=== PATIENT | male | born 1960 | race Caucasian/White ===

== ENCOUNTER → 2020-10-18 | Outpatient (CLI) | payer BC ==
--- NOTE | 2020-10-18 12:16 | RAD ---
INDICATION: Reason: RASH ON LLE, PERIPHERAL EDEMA / Spl. Instructions: / History: COMPARISON: None. TECHNIQUE: Grayscale, color and doppler ultrasound images were obtained of the bilateral lower extrem ity venous vasculature. RIGHT: No thrombus identified in the common femoral vein, femoral vein, popliteal vein or visualized calf ve ins. LEFT: No thrombus identified in the common femoral vein, femoral vein, popliteal vein or visualized calf ve ins. IMPRESSION: * No thrombus identified in deep venous system of bilateral lower extremities. Electronically signed by: Miguel Awad MD (10/18/2020 12:13 PM) [id number]
== END ==
LOC: US 11:05
PROVIDERS: ATTEND Physician Assistant Medical
DX: R60.0 Localized edema (principal); R21 Rash and other nonspecific skin eruption
CPT/HCPCS: 93970

== ENCOUNTER 2021-08-21 17:48 | Inpatient (IN) | payer BC ==
[~2021-08-21] VITALS: Ht 193 cm; Wt 79.4 kg
--- NOTE | 2021-08-21 19:07 | PHYS DOC ---
Past History Past Surgical History: No Surgical History Smoking: Cigarettes General Adult EDM: Chief Complaint: SHORTNESS OF BREATH HPI: HPI: ".. I ve been sick about a week now.. getting so weak .. I have to use a cane to walk.... Weak, short of breath, fevers urgent care said I had a pneumonia.... I ve been taking my steroids.. and antibiotics.. " Patient is a 60 year old male who presents with above hx and complaints of fever, cough, and hypoxia. Pt. seen earlier in Urgent care and given a dosage of Azithromax and started on Amoxicillin by Rx. Pt pneumonia diagnosed by chest xray at . Pt. has a 44 pack years. Normally follows with Aayush. Noted pt., desaturations into 80's with any activiity. Complaints of marked weakness and fatigue. No history of immunosuppression. No history of recent travel. No specific ill contacts. Patient did get COVID vaccination x3. Did not get flu vaccination this season. Review of Systems: Review of Systems: Constitutional: Subjective complaints of fever or chills Eyes: Denies change in visual acuity HENT: Denies nasal congestion or sore throat Respiratory: Complains of of cough and shortness of breath Cardiovascular: Denies chest pain or edema GI: Denies abdominal pain, nausea, vomiting, bloody stools or diarrhea : Denies dysuria Musculoskeletal: Complains of generalized muscle weakness and fatigue Integument: Denies rash Neurologic: Denies headache, focal weakness or sensory changes Endocrine: Denies polyuria or polydipsia Lymphatic: Denies swollen glands Psychiatric: Denies depression or anxiety Family History: Family History: Noncontributory to presentation Current Medications: Current Meds: See nursing for home meds Allergies: Allergies: Allergies Coded Allergies Type Severity Reaction Last Updated Verified No Known Drug Allergies 08/21/21 No Physical Exam: PE: Constitutional: Moderate acute distress, non-toxic appearance. [] HENT: Normocephalic, atraumatic, bilateral external ears normal, oropharynx moist, no oral exudates, nose normal. [] Eyes: PERRLA, EOMI, conjunctiva normal, no discharge. [] Neck: Normal range of motion, no tenderness, supple, no stridor. [] Cardiovascular:Heart rate regular rhythm, no murmur [] Lungs & Thorax: Bilateral breath sounds equal apex with scattered wheezes throughout on auscultation [] Abdomen: Bowel sounds normal, soft, no tenderness, no masses, no pulsatile masses. [] Skin: Warm, dry, no erythema, no rash. [] Back: No tenderness, no CVA tenderness. [] Extremities: No tenderness, no cyanosis, no clubbing, ROM intact, no edema. No cording appreciated. Complains of generalized weakness using a cane to walk Neurologic: Alert and oriented X 3, normal motor function, normal sensory function, no focal deficits noted. [] Psychologic: Affect anxious, judgement normal, mood normal. [] Current Patient Data: Vital Signs: Vital Signs Date Time Temp Pulse Resp B/P (MAP) Pulse Ox O2 Delivery O2 Flow Rate FiO2 08/21/21 18:01 98.7 78 18 153/90 (111) 90 Room Air EKG: EKG: My interpretation EKG shows a sinus rhythm at 64 bpm. No acute morphology. No findings of acute STEMI with contralateral changes. [] Radiology/Procedures: Radiology/Procedures: [place] [id number] IMAGING REPORT Signed PATIENT: Chun ROME ACCOUNT: [id number] : 1960 LOCATION: ER AGE: 60 SEX: M EXAM STATUS: REG ER ORD. PHYSICIAN: MAYE GAR MD REASON: OMNI 350, 100ML IV. Hypoxia PROCEDURE: CT ANGIOGRAPHY CHEST EXAMINATION: CTA CHEST CLINICAL HISTORY: Hypoxia. Technique: Spiral CT acquisition of the chest from the thoracic inlet to the upper abdomen following IV contrast with coronal and sagittal reformatted images also provided for review. 3D maximum intensity projection images also performed. CT Dose Reduction Employed: One or more of the following individualized dose reduction techniques were utilized for this examination: 1. Automated exposure control 2. Adjustment of the mA and/or kV according to patient size 3. Use of iterative reconstruction technique. COMPARISON: Chest radiograph same day FINDINGS: Pulmonary Vasculature: No evidence of main, lobar, or segmental pulmonary arterial thrombus. Lung Parenchyma, Pleura, and Airways: No focal consolidation. Scattered soler bsegmental atelectasis and/or scarring bilaterally. Moderate emphysema predominantly in the upper lobes. Two 5 mm solid pulmonary nodules in the posterior right lower lobe (series 5 image 84). 7 mm solid pulmonary nodule posterior right lower lobe (series 5 image 97). No pleural effusion. Central airways patent. Lower Neck, Lymph Nodes, and Mediastinum: Visualized thyroid gland within normal limits. No mediastinal, hilar, or axillary lymphadenopathy. Heart, Pericardium, and Thoracic Vessels: Cardiac chambers normal in size. No pericardial effusion. Thoracic aorta within normal limits. No coronary artery atherosclerotic calcifications are noted, although the study is not optimized for coronary assessment. Bones and Soft Tissues: Multilevel degenerative changes in thoracic spine. Upper Abdomen: Partially visualized upper abdomen unremarkable. IMPRESSION: No evidence of main, lobar, or segmental pulmonary embolism. Several pulmonary nodules in the right lower lobe measuring up to 7 mm. Recommend follow-up CT chest without intravenous contrast in 6-12 months to evaluate stability. Emphysema. Electronically signed by: Jayant Lopez DO (08/21/2021 9:22 PM) [facility] DICTATED AND SIGNED BY: JAYANT LOPEZ DO DATE: 08/21/212111 [][place] [address] IMAGING REPORT Signed PATIENT: Chun ROME ACCOUNT: [id number] : 1960 LOCATION: US AGE: 60 SEX: M EXAM STATUS: REG CLI ORD. PHYSICIAN: MAGDALENO SOTO REASON: RASH ON LLE, PERIPHERAL EDEMA PROCEDURE: VENOUS LOWER EXT BILATERAL INDICATION: Reason: RASH ON LLE, PERIPHERAL EDEMA / Spl. Instructions: / History: COMPARISON: None. TECHNIQUE: Grayscale, color and doppler ultrasound images were obtained of the bilateral lower extremity venous vasculature. RIGHT: No thrombus identified in the common femoral vein, femoral vein, popliteal vein or visualized calf veins. LEFT: No thrombus identified in the common femoral vein, femoral vein, popliteal vein or visualized calf veins. IMPRESSION: * No thrombus identified in deep venous system of bilateral lower extremities. Electronically signed by: Dasha Awad MD (10/18/2020 12:13 PM) [id number] DICTATED AND SIGNED BY: DASHA AWAD MD DATE: 10/18/20 1211 CC: MAGDALENO SOTO ~MTH0 0 Heart Score: C/O Chest Pain: N/A Risk Factors: Risk Factors: DM, Current or recent (<one month) smoker, HTN, HLP, family history of CAD, obesity. Risk Scores: Score 0 - 3: 2.5% MACE over next 6 weeks - Discharge Home Score 4 - 6: 20.3% MACE over next 6 weeks - Admit for Clinical Observation Score 7 - 10: 72.7% MACE over next 6 weeks - Early Invasive Strategies Course & Med Decision Making: Course & Med Decision Making Pertinent Labs and Imaging studies reviewed. (See chart for details) Discussed presentation, testing and tx. plan with Dr. Fontenot, Admit to his service Tele. Solumedrol 60 three times a day. Impression: 1. Respiratory Failure- Hypoxia 2. Emphysema/ COPD exacerbation 3. 44 Pack Year Smoking Hx. 4. Mild Leukocytosis 11.3 5. Pulmonary nodules 6. Weakness [] Dragon Disclaimer: Dragon Disclaimer: This electronic medical record was generated, in whole or in part, using a voice recognition dictation system. Departure Departure: Referrals: MAGDALENO SOTO (PCP) Draglonnie Disclaimer This chart was dictated in whole or in part using Voice Recognition software in a busy, high-work load, and often noisy Emergency Department environment. It may contain unintended and wholly unrecognized errors or omissions. Dragon Disclaimer This chart was dictated in whole or in part using Voice Recognition software in a busy, high-work load, and often noisy Emergency Department environment. It may contain unintended and wholly unrecognized errors or omissions. Dragon Disclaimer This chart was dictated in whole or in part using Voice Recognition software in a busy, high-work load, and often noisy Emergency Department environment. It may contain unintended and wholly unrecognized errors or omissions. MAYE GAR MD August 21, 2021 19:07
[2021-08-21] MEDS ORDERED: IV RINGERS SOLUTION,LACTATED 1,000 ML IV SCH (19:15)
[2021-08-21] MEDS ORDERED: ALBUTEROL SULFATE 8GM INHALER. INH ONE (19:15)
[2021-08-21 19:21] LABS: BASO # 0.1 x10^3/uL (0.0-0.2); BASO % 1 % (0-3); EOS # 0.1 x10^3/uL (0.0-0.7); EOS % 1 % (0-3); HEMATOCRIT 48.3 % (39.0-53.0); HEMOGLOBIN 16.2 g/dL (13.0-17.5); LYMPH # 2.3 x10^3/uL (1.0-4.8); LYMPH % 20 % (24-48); MEAN CORPUSCULAR HEMOGLOBIN 30 pg (25-35); MEAN CORPUSCULAR HGB CONC 34 g/dL (31-37); MEAN CORPUSCULAR VOLUME 89 fL (79-100); MONO # 0.8 x10^3/uL (0.0-1.1); MONO % 7 % (0-9); NEUT # 8.1 x10^3uL (1.8-7.7); NEUT % 71 % (31-73); PLATELET COUNT 239 x10^3/uL (140-400); RED BLOOD COUNT 5.42 x10^6/uL (4.30-5.70); RED CELL DISTRIBUTION WIDTH 13.6 % (11.5-14.5); WHITE BLOOD COUNT 11.3 x10^3/uL (4.0-11.0)
[2021-08-21] MEDS ORDERED: IV NORMAL SALINE 50ML 50 ML ONE (19:23)
[2021-08-21] MEDS ORDERED: cefTRIAXone SODIUM 1 GM VIAL ONE (19:23)
[2021-08-21 19:31] LABS: BACTERIA,URINE 0 /HPF (0-FEW); CLARITY,URINE CLEAR; COLOR,URINE YELLOW; GLUCOSE,URINE NEG (NEG); NITRITE,URINE NEG (NEG); RBC,URINE RARE /HPF (0-2); WBC,URINE RARE /HPF (0-4)
[2021-08-21 19:34] LABS: CALCIUM 8.9 mg/dL (8.5-10.1); GFR 76.2; POTASSIUM 4.3 mmol/L (3.5-5.1)
[2021-08-21 19:36] LABS: AMPHETAMINE/METHAMPHETAMINE NEG (NEG); BARBITURATES NEG (NEG); BENZODIAZEPINES NEG (NEG); CANNABINOIDS NEG (NEG); COCAINE NEG (NEG); METHADONE NEG (NEG); OPIATES NEG (NEG); PHENCYCLIDINE NEG (NEG)
[2021-08-21 19:44] LABS: BGAS PH 7.51 (7.35-7.46)
[2021-08-21 19:48] LABS: ALBUMIN 3.8 g/dL (3.4-5.0); DIRECT BILIRUBIN 0.2 mg/dL (0.0-0.2); TOTAL BILIRUBIN 0.9 mg/dL (0.2-1.0); TOTAL PROTEIN 7.2 g/dL (6.4-8.2)
[2021-08-21 19:49] LABS: INFLUENZA A PATIENT NEGATIVE (NEGATIVE); INFLUENZA B PATIENT NEGATIVE (NEGATIVE)
[2021-08-21] MEDS ORDERED: IOHEXOL 350 MG/ML 100 ML VIAL. IV ONE (20:00)
--- NOTE | 2021-08-21 21:25 | RAD ---
EXAMINATION: CTA CHEST CLINICAL HISTORY: Hypoxia. Technique: Spiral CT acquisition of the chest from the thoracic inlet to the upper abdomen following IV contrast with coronal and sagittal reformatted images also provided for review. 3D maximum intensi ty projection images also performed. CT Dose Reduction Employed: One or more of the following individualized dose reduction techniques wer e utilized for this examination: 1. Automated exposure control 2. Adjustment of the mA and/or kV ac cording to patient size 3. Use of iterative reconstruction technique. COMPARISON: Chest radiograph same day FINDINGS: Pulmonary Vasculature: No evidence of main, lobar, or segmental pulmonary arterial thrombus. Lung Parenchyma, Pleura, and Airways: No focal consolidation. Scattered subsegmental atelectasis and/ or scarring bilaterally. Moderate emphysema predominantly in the upper lobes. Two 5 mm solid pulmonar y nodules in the posterior right lower lobe (series 5 image 84). 7 mm solid pulmonary nodule posterio r right lower lobe (series 5 image 97). No pleural effusion. Central airways patent. Lower Neck, Lymph Nodes, and Mediastinum: Visualized thyroid gland within normal limits. No mediastin al, hilar, or axillary lymphadenopathy. Heart, Pericardium, and Thoracic Vessels: Cardiac chambers normal in size. No pericardial effusion. T horacic aorta within normal limits. No coronary artery atherosclerotic calcifications are noted, alth ough the study is not optimized for coronary assessment. Bones and Soft Tissues: Multilevel degenerative changes in thoracic spine. Upper Abdomen: Partially visualized upper abdomen unremarkable. IMPRESSION: No evidence of main, lobar, or segmental pulmonary embolism. Several pulmonary nodules in the right lower lobe measuring up to 7 mm. Recommend follow-up CT chest without intravenous contrast in 6-12 months to evaluate stability. Emphysema. Electronically signed by: Jayant Lo DO (08/21/2021 9:22 PM) [facility]
[2021-08-21] MEDS ORDERED: ACETAMINOPHEN 325 MG TABLET PO PRN (21:45)
[2021-08-21] MEDS ORDERED: methylPREDNISolone SOD SUCC PF 125 MG/2 ML VIAL. IV ONE (21:45)
[2021-08-21] MEDS ORDERED: ONDANSETRON PF 4 MG/2 ML VIAL. IVP PRN (21:45)
[2021-08-21 22:57] VITALS: BP 151/75
[2021-08-22 04:22] VITALS: BP 118/61
[2021-08-22] MEDS: IPRATRPIUM/ALBUTEROL 0.5/2.5MG 3 ML NEBU. NEB SCH ×4 (04:45→20:29)
[2021-08-22 06:11] LABS: CALCIUM 8.4 mg/dL (8.5-10.1); CREATININE 1.1 mg/dL (0.7-1.3); GFR 68.3
[2021-08-22 06:23] LABS: BASO % 0 % (0-3); EOS % 0 % (0-3); HEMATOCRIT 44.4 % (39.0-53.0); LYMPH # 0.8 x10^3/uL (1.0-4.8); LYMPH % 10 % (24-48); MEAN CORPUSCULAR HEMOGLOBIN 30 pg (25-35); MEAN CORPUSCULAR HGB CONC 34 g/dL (31-37); MEAN CORPUSCULAR VOLUME 89 fL (79-100); MONO # 0.1 x10^3/uL (0.0-1.1); MONO % 1 % (0-9); NEUT # 7.5 x10^3uL (1.8-7.7); NEUT % 89 % (31-73); PLATELET COUNT 212 x10^3/uL (140-400); RED BLOOD COUNT 4.98 x10^6/uL (4.30-5.70); RED CELL DISTRIBUTION WIDTH 13.4 % (11.5-14.5); WHITE BLOOD COUNT 8.3 x10^3/uL (4.0-11.0)
[2021-08-22 07:00] VITALS: BP 124/68
[2021-08-22] MEDS ORDERED: methylPREDNISolone SOD SUCC PF 125 MG/2 ML VIAL. IV ONE (09:00)
[2021-08-22] MEDS ORDERED: AZITHROMYCIN 250 MG TABLET. PO ONE (09:00)
--- NOTE | 2021-08-22 09:19 | HP ---
DATE OF SERVICE: 08/22/2021 ADMIT DATE: 08/21/2021 ATTENDING PHYSICIAN: Dr. Fontenot. CHIEF COMPLAINT: Shortness of breath. HISTORY OF PRESENT ILLNESS: The patient is a 60-year-old gentleman, heavy smoker, admitted through the ED with a 1-week history of profound weakness, shortness of breath, dyspnea with minimal exertion. He supposedly was diagnosed with pneumonia. He was sent home with antibiotics and steroids. The followup CT scan showed no acute infiltrate, but he does have significant emphysema. He is admitted then with an exacerbation of COPD and acute on chronic respiratory failure. He was given Solu-Medrol and supplemental oxygen. Antibiotics were continued. PAST MEDICAL HISTORY: Significant for COPD. He works as a dispatcher maintenance. He has smoked for more than 40 years. He used to drink heavily. He has stopped this since then. No history of DUI seizures. ALLERGIES: He has no known drug allergies. CURRENT MEDICATIONS: None. FAMILY HISTORY: Mom is alive at age 78. Father is alive at age 79. He is and works as a dispatcher maintenance for the [employer]. REVIEW OF SYSTEMS: Significant for dyspnea on minimal exertion. A dry nonproductive cough. No COVID exposure. He smokes heavily. All other systems reviewed and turned to be negative. PHYSICAL EXAMINATION: GENERAL: When I saw him, this is a pleasant gentleman. INITIAL VITAL SIGNS: Showed a blood pressure 118/61, pulse is 60 and regular. He was afebrile, oxygen saturation 93% on 2 liters by nasal cannula. HEENT: Head is without trauma. Pupils are reactive. Sclerae nonicteric. Oropharynx is clear. NECK: Supple. LUNGS: Diffuse wheezing bilaterally. CARDIOVASCULAR: Showed regular heart tones. No gallop. ABDOMEN: Soft. EXTREMITIES: Show no cyanosis or edema. NEUROLOGIC: Focally intact. Speech is fluent. PERTINENT LABORATORY STUDIES: Hemoglobin is 15.0 g/dL with a white count of 8300. His chemistry panel was unremarkable. Creatinine is 1.1 mg/dL. Nonfasting blood sugar 130. Cardiac troponins were negative. CT of the chest as noted, emphysematous changes. ASSESSMENT: 1. A 60-year-old gentleman with acute on chronic respiratory failure. 2. Exacerbation of chronic obstructive pulmonary disease. 3. Continued tobacco use. PLAN: 1. Admitted to the inpatient observation status. 2. Steroids. 3. Empiric antibiotics. 4. Nebulizer therapy. JULIO/BALA DR: Hari TID: [id number] CC: MICHELE ROLDAN
[2021-08-22 11:00] VITALS: BP 117/62
[2021-08-22] MEDS: AZITHROMYCIN 250 MG TABLET. PO SCH (13:15)
[2021-08-22] MEDS ORDERED: ZOLPIDEM 5 MG TABLET. PO PRN (13:15)
--- NOTE | 2021-08-22 13:18 | DS ---
DATE OF DISCHARGE: 08/22/2021 FINAL DISCHARGE DIAGNOSES: 1. Acute on chronic respiratory failure. 2. Exacerbation of chronic obstructive pulmonary disease. 3. Continue tobacco addiction. HISTORY AND PHYSICAL: The patient is a 60-year-old gentleman, heavy smoker, admitted with increasing shortness of breath and weakness. CT of the chest showed no acute infiltrate, but significant emphysematous changes. He was started on steroids and empiric antibiotics. There is a mild bronchitis component. PHYSICAL EXAMINATION: Please see the dictated note. PERTINENT LABORATORY AND X-RAY STUDIES: CT of the chest showed chronic emphysematous changes, no acute infiltrates identified. CBC and chemistry panel unremarkable. Cardiac enzymes were negative for coronary ischemia. Coronavirus was nonreactive. COURSE IN THE HOSPITAL: He was started on empiric antibiotics, steroids and nebulizer therapy. He did well. By the next day, his oxygen saturations were adequate on room air. He was ready for discharge. Strong encouragement to avoid further tobacco use, whether or not he will quit smoking remains to be seen. I recommended prednisone 60 mg p.o. daily for 7 more days and stop. Albuterol metered dose inhaler 2 puffs q.i.d. with spacer, cephalexin 500 mg p.o. t.i.d. for 7 days and stop and work release through 08/27/2021. He will follow up with Melva Looney in 1 week. The patient was then discharged from our hospital in stable condition with explicit drug and followup care. GEORGINA DR: Hari TID: [id number] CC: MICHELE ROLDAN
[2021-08-22 15:00] VITALS: BP 119/58
[2021-08-22] MEDS: ENOXAPARIN 40 MG/0.4 ML SYRINGE. SQ SCH (15:14)
--- NOTE | 2021-08-22 16:02 | RAD ---
CT HEAD/BRAIN WO History: Reason: right side weakness / Spl. Instructions: / History: Comparison: None. Technique: Noncontrast CT imaging was performed of the head. Exposure: One or more of the following individualized dose reduction techniques were utilized for thi s examination: 1. Automated exposure control 2. Adjustment of the mA and/or kV according to patient size 3. Use of iterative reconstruction technique. Findings: No intracranial hemorrhage. No mass effect. No hydrocephalus. Extra-axial spaces are unremarkable. Imaged orbits are unremarkable. Partial opacification of right ethmoid air cells. Mastoid air cells a re clear. No acute calvarial fracture. Impression: 1. No acute intracranial abnormality. Electronically signed by: Joseph Gates DO (08/22/2021 4:00 PM) [id number]
--- NOTE | 2021-08-22 16:06 | RAD ---
US DPLX CAROTID BILAT History: Reason: right weakness / Spl. Instructions: / History: COMPARISON: None Technique: Duplex sonography of the cervical portion of both carotid arteries was performed. Real-reyes e grayscale, color flow Doppler, and Doppler spectral waveform analysis is performed. PQRS Compliance Statement - Stenosis calculations for CT, MR and conventional angiography are based u rajwinder measurement of the distal ICA diameter in accordance with the NASCET methodology. Stenosis calcu lations for carotid ultrasound studies are derived from validated velocity criteria which are known t o correlate with the NASCET methodology. Findings: Right side: Peak systolic flow velocity of the CCA is 110 cm/sec. Peak systolic flow velocity of the ICA is 114 cm/sec. The ICA/CCA ratio is 1.0. Peak end diastolic flow velocity of the ICA is 18 cm/sec. The peak systolic velocity of the ECA is 140 cm/sec. No significant plaque formation is identified. Left side: Peak systolic flow velocity of the CCA is 91 cm/sec. Peak systolic flow velocity of the ICA is 67 cm/sec. The ICA/CCA ratio is 0.7. Peak end diastolic flow velocity of the ICA is 14 cm/sec. Peak systolic flow velocity of the ECA is 148 cm/sec. No significant plaque formation is identified. Vertebral arteries: Bilateral vertebral arteries demonstrate antegrade flow. IMPRESSION: 1. No hemodynamically significant internal carotid artery stenosis. Electronically signed by: Joseph Gates DO (08/22/2021 4:03 PM) [id number]
--- NOTE | 2021-08-22 17:02 | CARD ---
MR#: [id number] Date of Study: 08/22/2021 Ordering Physician: DENICE DIAZ, Referring Physician: DENICE DIAZ, Tech: Trevor Wynn [facility] APPROVED REPORT EXAM: Two-dimensional and M-mode echocardiogram with Doppler and color Doppler. Other Information Quality : GoodHR: 64bpm Rhythm : NSR INDICATION Dyspnea RISK FACTORS Smoking COPD 2D DIMENSIONS Left Atrium(2D)2.9 (1.6-4.0cm)IVSd1.0 (0.7-1.1cm) Aortic Root(2D)4.0 (2.0-3.7cm)LVDd4.7 (3.9-5.9cm) LVOT Diameter1.9 (1.8-2.4cm)PWd1.0 (0.7-1.1cm) LA Emsari06 (18-58mL)LVDs1.7 (2.5-4.0cm) FS (%) 65.0 %SV96.8 ml Aortic Valve AoV Peak Michael.177.5cm/sAoV VTI32.4cm AO Peak GR.12.6mmHgLVOT Peak Michael.133.3cm/s LVOT VTI 28.96cmAO Mean GR.6mmHg CALOS (VMAX)2.73ik5MUS (VTI)2.59cm2 Mitral Valve MV E Ckuysazy28.8cm/sMV DECEL UBYC255he MV A Knnpmzbh36.6cm/sE/A Ratio1.1 Pulmonary Valve PV Peak Spjcvxpb649.7cm/sPV Peak Grad.6mmHg Tricuspid Valve TR P. Uihcgcjk824sc/sTR Peak Gr.34mmHg Pulmonary Vein S1 Jxsrfkhx55.0cm/sD2 Nwtatjab40.1cm/s LEFT VENTRICLE The left ventricle is normal size. There is normal left ventricular wall thickness. The left ventricu lar systolic function is normal. LV ejection fraction is 55 to 60%. There is normal LV segmental wall motion. The left ventricular diastolic function and filling is normal for age. No left ventricle thr ombus noted on this study. There is no ventricular septal defect visualized. There is no left ventric ular aneurysm. There is no mass noted in the left ventricle. RIGHT VENTRICLE The right ventricle is normal size. There is normal right ventricular wall thickness. The right ventr icular systolic function is normal. ATRIA The left atrium size is normal. The right atrium is mildly dilated. The interatrial septum is intact with no evidence for an atrial septal defect or patent foramen ovale as noted on 2-D or Doppler imagi ng. AORTIC VALVE The aortic valve is normal in structure and function. Doppler and Color Flow revealed no significant aortic regurgitation. There is no significant aortic valvular stenosis. There is no aortic valvular v egetation. MITRAL VALVE The mitral valve is normal in structure and function. There is no evidence of mitral valve prolapse. There is no mitral valve stenosis. Doppler and Color-flow revealed trace mitral regurgitation. TRICUSPID VALVE The tricuspid valve is normal in structure and function. Doppler and Color Flow revealed mild tricusp id regurgitation. The PA pressure was estimated at 36 mmHg. There is no tricuspid valve prolapse or v egetation. There is no tricuspid valve stenosis. PULMONIC VALVE The pulmonary valve is normal in structure and function. Doppler and Color Flow revealed no pulmonic valvular regurgitation. There is no pulmonic valvular stenosis. GREAT VESSELS The aortic root is dilated at (4.0cm) The ascending aorta is normal in size. The pulmonary artery is normal. The IVC is normal in size and collapses >50% with inspiration. PERICARDIAL EFFUSION There is no pleural effusion. There is no evidence of significant pericardial effusion. Critical Notification Critical Value: No <Conclusion> The left ventricle is normal size. The left ventricular systolic function is normal. LV ejection fraction is 55 to 60%. Doppler and Color Flow revealed no significant aortic regurgitation. There is no significant aortic valvular stenosis. Doppler and Color-flow revealed trace mitral regurgitation. Doppler and Color Flow revealed mild tricuspid regurgitation. The PA pressure was estimated at 36 mmHg. The aortic root is dilated at (4.0cm) Signed by : Nikhil Dobbins MD Electronically Approved : 08/22/2021 17:01:37
[2021-08-22 17:42] LABS: CHOLESTEROL/HDL RATIO 4.3
[2021-08-22 19:00] VITALS: BP 118/52
[2021-08-22] MEDS: TAMSULOSIN 0.4 MG CAP.ER.24H. PO SCH (21:05)
--- NOTE | 2021-08-23 00:04 | PN ---
ADDENDUM I had discharged the patient. He was ready to go home, but it turned out he wants to change doctor. He disagree with my opinion. Dr. Wilson was called and he was gracious enough to accept the patient in transfer. Therefore, the patient will be transferred to Dr. Wilson. I have already dictated the discharge summary. ROWAN DR: Hari TID: [id number] CC: MICHELE ROLDAN
[2021-08-23 04:05] VITALS: BP 108/63
[2021-08-23 05:51] LABS: BASO # 0.1 x10^3/uL (0.0-0.2); BASO % 1 % (0-3); EOS % 0 % (0-3); HEMOGLOBIN 13.6 g/dL (13.0-17.5); LYMPH # 2.7 x10^3/uL (1.0-4.8); LYMPH % 16 % (24-48); MEAN CORPUSCULAR HEMOGLOBIN 30 pg (25-35); MEAN CORPUSCULAR HGB CONC 33 g/dL (31-37); MEAN CORPUSCULAR VOLUME 90 fL (79-100); MONO # 1.2 x10^3/uL (0.0-1.1); MONO % 7 % (0-9); NEUT # 12.6 x10^3uL (1.8-7.7); NEUT % 76 % (31-73); PLATELET COUNT 188 x10^3/uL (140-400); RED BLOOD COUNT 4.56 x10^6/uL (4.30-5.70); RED CELL DISTRIBUTION WIDTH 13.7 % (11.5-14.5); WHITE BLOOD COUNT 16.7 x10^3/uL (4.0-11.0)
[2021-08-23 06:09] LABS: ALBUMIN 2.8 g/dL (3.4-5.0); CALCIUM 8.1 mg/dL (8.5-10.1); GFR 76.2; POTASSIUM 3.2 mmol/L (3.5-5.1); TOTAL BILIRUBIN 0.5 mg/dL (0.2-1.0); TOTAL PROTEIN 5.7 g/dL (6.4-8.2)
[2021-08-23 06:10] LABS: % BANDS 3 % (0-9); % LYMPHS 11 % (24-48); % MONOS 7 % (0-10); % SEGS 79 % (35-66); PLT ESTIMATE ADEQUATE (ADEQUATE)
[2021-08-23 07:00] VITALS: BP 107/62
[2021-08-23] MEDS: ASPIRIN ENTERIC COATED 81 MG TABLET.DR. PO SCH (09:07)
[2021-08-23] MEDS: AZITHROMYCIN 250 MG TABLET. PO SCH (09:07)
[2021-08-23 11:20] VITALS: BP 124/68
[2021-08-23] MEDS: methylPREDNISolone SOD SUCC PF 40 MG/ML VIAL. IV SCH ×2 (15:04→20:52)
[2021-08-23] MEDS: ENOXAPARIN 40 MG/0.4 ML SYRINGE. SQ SCH (15:05)
[2021-08-23 17:01] VITALS: BP 126/70
[2021-08-23] MEDS: TAMSULOSIN 0.4 MG CAP.ER.24H. PO SCH (20:52)
--- NOTE | 2021-08-23 21:48 | CONS ---
NEUROLOGY CONSULTATION REFERRING PHYSICIAN: Dr. Manoj Fontenot. REASON FOR CONSULTATION: Generalized weakness. HISTORY OF PRESENT ILLNESS: This is a 60-year-old right-handed male, has had 1 week history of progressive weakness of the lower extremities, shortness of breath and cough. The patient was first seen in urgent care in [place]. He was diagnosed with pneumonia and discharged home with antibiotics and prednisone. The patient appeared to have progressive weakness of the lower extremities to the point that he sustained 2 falls. The patient stated his knee buckled on him and he is unable to stand and walk. He was evaluated in the Emergency Room today and was found to have possible exacerbation of COPD due to longstanding history of smoking. The patient stated he was never diagnosed with COPD in the past. He was found to have acute respiratory failure with oxygen saturation of 80. Therefore, the patient was admitted for further evaluation and treat the underlying COPD. He was started on antibiotics and steroids -- Solu-Medrol. The patient was given nebulizer and inhaler as well. Currently, the patient denies any new neurological complaints. He denies headaches, visual disturbances, dysarthria, dysphagia or focal weakness. He describes intermittent numbness and paresthesia of the upper extremities. PAST MEDICAL HISTORY: Significant for chronic smoking and possible COPD. 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 FAMILY HISTORY: Noncontributory. SOCIAL HISTORY: The patient is . He has 2 sons. 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. The patient has been smoking 1 pack of cigarettes daily since age of 16. CURRENT MEDICATIONS: Aspirin 81 mg p.o. daily, tamsulosin 0.4 mg p.o. daily, ceftriaxone, Lovenox 40 mg daily, zolpidem 5 mg at bedtime p.r.n. for insomnia, azithromycin 250 mg p.o. daily, and albuterol inhaler. ALLERGIES: No known drug allergies. REVIEW OF SYSTEMS: A 10-point review of system was performed as mentioned above in history of present illness, otherwise unremarkable. PHYSICAL EXAMINATION: GENERAL: Well-developed, well-nourished male in no acute distress. He weighs 79.4 kilos. VITAL SIGNS: Blood pressure 117/62, respiratory rate 20, pulse is 68, oxygen saturation is 93% on 2.5 liters per nasal cannula, temperature 97.9. HEENT: Normocephalic, atraumatic, otherwise unremarkable. NECK: Supple, negative for carotid bruit, lymphadenopathy or thyromegaly. LUNGS: With diminished breath sounds. No wheezing or rales. CARDIOVASCULAR: Regular rate and rhythm. Normal S1, S2. There is no S3, S4 or murmur. ABDOMEN: Soft. Bowel sounds positive. EXTREMITIES: Negative for cyanosis, clubbing or pedal edema. NEUROLOGIC: Mental status: The patient is alert and oriented x 3. Speech is fluent. There is no language dysfunction. Memory, judgment and abstracting thinking are normal. The patient denies hallucination or delusion. Cranial nerves: Visual walton are full. The pupils are reactive to light and accommodation. The extraocular movements are intact. There is no nystagmus. There is no facial motor or sensory deficit. Hearing is diminished bilaterally. The palate is elevated symmetrically. Sternocleidomastoid muscles are powerful bilaterally. The patient shrugs his shoulders symmetrically, protrudes his tongue in the midline without fasciculation or atrophy. Motor Examination: No focal muscle bulk wasting. The tone is normal. The strength is 4/5 in the proximal lower extremities and 5/5 distally. Sensory examination revealed normal pinprick, light touch, vibratory and position senses. Deep tendon reflexes were asymmetric and hypoactive with absent Achilles responses bilaterally. Gait: The stance is unsteady. DIAGNOSTIC DATA: A nonenhanced head CT scan revealed no acute intracranial process, otherwise unremarkable. A carotid Doppler study revealed no significant intracranial carotid artery stenosis. CT angio of the chest revealed no evidence of pulmonary embolism, but positive for multiple nodules in the right lower lobe measuring up to 7 mm and positive for emphysema. LABORATORY DATA: CBC revealed blood cells of 8.3 thousand, hemoglobin 15, hematocrit 44.4, platelet count 212,000. Chemistry revealed a sodium of 140, potassium 4, chloride 104, CO2 of 29, BUN 13, creatinine 1.1, glucose 130. Lactic acid 1.6, calcium 8.4, magnesium is normal at 2.2 with normal liver enzymes and troponin I high sensitivity with normal CRP. Lipid profile is unremarkable except for low HDL at 35 with normal TSH. Urinalysis is negative for urinary tract infection. Urine drug screen is negative. Serology revealed negative COVID rapid test and negative for influenza A and influenza B. IMPRESSION: 1. Generalized weakness, more prominent in the proximal lower extremities. 2. Emphysema and possible exacerbation of chronic obstructive pulmonary disease. RECOMMENDATIONS: 1. Continue with current management initiated by Dr. Fontenot including antibiotic and steroid for COPD exacerbation. 2. Physical therapy evaluation. 3. Smoking cessation. 4. Should the patient have a progressive ascending weakness and absent deep tendon reflexes, other etiology for his weakness should be considered as a new onset of acute inflammatory demyelinating polyneuropathy. However, his weakness at this time does not fit ascending weakness as we see in Guillain-[place] syndrome. LINDA/BLAKE/MORAIMA/BABAK DR: Usman TID: [id number]
[2021-08-24 04:00] VITALS: BP 126/72
--- NOTE | 2021-08-24 04:02 | PN ---
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 The patient beyond his acute respiratory failure when we checked it without oxygen drops down into the low 80s. He requires oxygen. He is on aggressive pulmonary toilet as well as steroid treatment as well as supplemental oxygen, of course. However, the patient also shows generalized weakness, definite weakness in the proximal and distal muscles of the lower leg as well as the upper extremities as well. His speech seems to be fluent, spontaneous, and appropriate. His eyes are PERRL. There is no other element. 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 OBJECTIVE: VITAL SIGNS: This morning, his blood pressure is 108/63, respiratory rate 18, pulse 57, afebrile. He is at 2 liters at 92-93% without the supplemental oxygen down in the low 80s. LUNGS: Diminished. They are somewhat improved from yesterday, but they are still showing marked diminishment of movement of air. CARDIOVASCULAR: Regular sinus rhythm. His echo was pretty much unremarkable. There was some concern that he had some type of a stroke. A CT of his head was unremarkable as he seemed to have a decreased reflex in his right leg compared to that of his left leg. Pulses were noted distally to be appropriate. Interesting enough, his gait shows a decrease in pronation when he walks where he walks almost slightly flat footed, which is unusual and may obviously have something to do with his nervous system. Dr. Oliva noted neurologist is evaluating that first and need EMGs and other testing may or may not be available here. CTA of the chest was pretty much unremarkable. There is no doubt this patient has some type of a respiratory component to other elements here and checked in conjunction with his acute respiratory failure. He did have several pulmonary nodules in the right lower lobe. He will get a CT scan at least in 6 months if not sooner and maybe a pulmonary consult and make sure there is no evidence of any cancers, which obviously can also produce some type of other neurological problems, so will continue to be monitored carefully and make further evaluation on him. IMPRESSION: Acute respiratory failure, acute on top of chronic exacerbation of asthma, generalized muscle weakness, abnormal weight loss, severe protein malnutrition, pseudo-hypocalcemia, hypokalemia. Troponins normal. Thyroid was normal. We will continue workup respiratory as well as neurologically. Continue with PT, OT. ELKE/FABI/KVNG DR: Kerrie TID: [id number]
[2021-08-24 07:23] VITALS: BP 127/66
[2021-08-24] MEDS: methylPREDNISolone SOD SUCC PF 40 MG/ML VIAL. IV SCH ×3 (09:51→21:48)
[2021-08-24] MEDS: LACTOBACILLUS RHAMNOSUS GG 1 CAPSULE. PO SCH ×2 (09:51→21:48)
[2021-08-24] MEDS: ASPIRIN ENTERIC COATED 81 MG TABLET.DR. PO SCH (09:54)
[2021-08-24] MEDS: AZITHROMYCIN 250 MG TABLET. PO SCH (09:55)
[2021-08-24 10:56] VITALS: BP 126/72
[2021-08-24] MEDS: ENOXAPARIN 40 MG/0.4 ML SYRINGE. SQ SCH (13:56)
[2021-08-24 14:59] VITALS: BP 124/66
[2021-08-24] MEDS ORDERED: POTASSIUM CHLORIDE 20 MEQ TABLET.ER. PO ONE (17:00)
[2021-08-24 19:05] VITALS: BP 128/74
[2021-08-24 21:16] LABS: CALCIUM 8.3 mg/dL (8.5-10.1); CREATININE 1.1 mg/dL (0.7-1.3); GFR 68.3; POTASSIUM 4.3 mmol/L (3.5-5.1)
[2021-08-24] MEDS: TAMSULOSIN 0.4 MG CAP.ER.24H. PO SCH (21:48)
--- NOTE | 2021-08-25 02:56 | PN ---
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 The patient is doing somewhat better in that regard. Still fairly weak. Still having difficulty walking, having to use a walker, at times still having to use an additional oxygen, although that is improving. OBJECTIVE: VITAL SIGNS: Blood pressure 126/72, respiratory rate 18, pulse 70, afebrile, still 92 on room air, although desaturates with activity. He has to use a walker as noted. GENERAL: Otherwise, alert and oriented. Speech is fluent and spontaneous. LUNGS: Diminished, but basically clearer than they have been, moving air better. CARDIOVASCULAR: As indicated. ABDOMEN: Soft, nontender. NEUROLOGIC: Shows some gained strength in his proximal muscles of his lower extremities and upper extremities. 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 We will continue to monitor those and continue to taper down on steroids, make further evaluation there. The patient negative on COVID as well as influenza. IMPRESSION: Acute respiratory failure, acute on top of chronic exacerbation of asthma, generalized muscle weakness, abnormal weight loss, severe protein malnutrition, pseudohypocalcemia, hypokalemia. PLAN: Continue with PT, OT. Taper down on steroids. Monitor the patient accordingly and discussed with the patient and his . Continue plan of therapy. ELKE/BLAKE/CHARMAINE DR: Kerrie TID: [id number]
[2021-08-25 05:05] VITALS: BP 129/72
[2021-08-25 06:53] LABS: CALCIUM 8.5 mg/dL (8.5-10.1); GFR 76.2; POTASSIUM 4.1 mmol/L (3.5-5.1)
--- NOTE | 2021-08-25 08:14 | PN ---
DATE: 08/23/2021 REFERRING PHYSICIAN: Dr. Kanu Wilson. SUBJECTIVE: The patient denies any new medical or neurological complaints; however, he felt his generalized weakness has been better a little bit. He continues to have difficulty breathing. He denies chest pain. OBJECTIVE: GENERAL: Well-developed, well-nourished male, not in acute distress. VITAL SIGNS: Blood pressure 108/63, respiratory rate 18, pulse is 57, oxygen saturation 92% on 2 liters by nasal cannula, temperature is 97.7. HEENT: Normocephalic, atraumatic, otherwise unremarkable. NECK: Supple, negative for carotid bruit, lymphadenopathy or thyromegaly. LUNGS: Diminished breath sounds. No wheezing at this time. CARDIOVASCULAR: Regular rate and rhythm. Normal S1, S2. There is no S3, S4, or murmur. ABDOMEN: Soft. Bowel sounds positive. EXTREMITIES: Negative for cyanosis, clubbing, or pedal edema. NEUROLOGIC: Mental Status: The patient is alert and oriented x 3. Speech is fluent. There is no language dysfunction. Otherwise, unremarkable. Cranial nerves are intact. Motor examination revealed no focal muscle bulk wasting. The tone is normal. The strength is 4/5 in the proximal lower extremities and 5/5 in distal lower extremities, 5/5 in the upper extremities. Sensory examination revealed normal pinprick and light touch senses throughout. Deep tendon reflexes were symmetric with 1/4 at ____ and absent Achilles responses. Gait: The patient has difficulty to stand up, but when he is up, Romberg sign is negative. He walks with a walker. LABORATORY DATA: CBC revealed white blood cells of 16.7 thousand, hemoglobin 13.6, hematocrit 41, platelet count 188,000. Chemistry: Sodium 142, potassium 3.2, chloride 106, CO2 of 30, BUN 19, creatinine 1, glucose 101, calcium 8.1. IMPRESSION: 1. Generalized weakness. 2. Chronic obstructive pulmonary disease and exacerbation may have contributed to the generalized weakness. 3. Longstanding history of smoking. 4. Bronchitis. 5. Abnormal CT angio of the chest consistent with multiple small nodules confined to the right lower lobe. 6. Hypokalemia. RECOMMENDATIONS: 1. Treat the underlying chronic obstructive pulmonary disease and bronchitis. 2. Follow up with Dr. Oliva in outpatient to rule out polyneuropathy versus lumbosacral radiculopathy. 3. Smoking cessation. 4. Physical therapy. 5. Potassium supplements. LINDA/FABI/JOSE ENRIQUE DR: LINDA/mikie TID: [id number]
[2021-08-25] MEDS: ASPIRIN ENTERIC COATED 81 MG TABLET.DR. PO SCH (08:25)
[2021-08-25] MEDS: methylPREDNISolone SOD SUCC PF 40 MG/ML VIAL. IV SCH ×2 (08:25→14:00)
[2021-08-25] MEDS: LACTOBACILLUS RHAMNOSUS GG 1 CAPSULE. PO SCH (08:25)
[2021-08-25] MEDS: AZITHROMYCIN 250 MG TABLET. PO SCH (08:25)
[2021-08-25 11:44] VITALS: BP 138/75
[2021-08-25] MEDS: ENOXAPARIN 40 MG/0.4 ML SYRINGE. SQ SCH (14:00)
--- NOTE | 2021-08-25 15:10 | DS ---
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 The patient had a week of profound weakness, shortness of breath with minimal exertion. The patient apparently has been seen and was sent home with antibiotics and steroids. 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 The patient although treated as an outpatient, became progressively more ill in terms of shortness of breath as well as increased weakness and his extremities became quite hypoxic, required supplemental oxygen. Had difficulty walking and required assistance in walking as well as breathing treatments. His oxygen saturation measured by this physician actually dropped down into the low 80 percentile range and required supplemental oxygen to bring it into the low 90% range. The patient's CT scan showed us several pulmonary nodules in the right lower lobe. Chest x-ray showed moderate emphysema in the upper lobes, 5 mm pulmonary nodules in the posterior right lower lobe. A 7 mm solid pulmonary nodule in the posterior right lower lobe. Radiology recommended followup CT scan without IV contrast in 6 to 12 months. He will probably have a followup with Pulmonology. All in all, the patient was extremely short of breath, extremely weak, does have a gait belt. His legs were extremely weak and required physical and occupational therapy to retrain his gait. He still had continued weakness despite that had to use a walker to mobilize. His initial white count was 11.3, hemoglobin of 16 and 48. Hemoglobin came down to 13 and 41. Neutrophils originally were only 7% and came back up to 76%, lymphocytes 20% and stabilized at 16%. This is after the use of steroids to aid in his breathing. The patient had decreased breath sounds, particularly in the right lower lobe. Sputums were sent down for a culture and sensitivity as well as a Gram stain. The patient made reasonably good progress. He is still extremely weak. Still requiring the use of a walker, still required the use of inhalation therapy. He was hypoxic and required oxygen supplemental. Pulmonary function tests were not available at that time and will be obtained later on. We will probably have him reviewed by a synchronous motor assembler, not available at this time. The patient will have sputum sent down for culture and sensitivity as well as further evaluation. The patient will follow up with Pulmonology. The patient's other labs showed a slight increase in blood sugars. He was placed on steroids to help him with his breathing, respiratory effort as the patient initially had as noted some respiratory difficulties. The patient will be placed on a tapering dose of prednisone as well as breathing treatments at home. Continue on some oral antibiotics. Culture sensitivity on the sputum is still pending and we will make further evaluation once those results are obtained. In any case, he made relatively good progress. He still had marked weakness of the legs and this was concerning. Dr. Oliva had seen him and will follow up with EMGs as an outpatient. The patient otherwise will continue to be monitored as an outpatient. He is on breathing treatments as an outpatient and continue on oral antibiotics for now until further cultures have been obtained from his sputum for fungal as well as bacterial cultures. He will end up probably seen a synchronous motor assembler as he has several nodules that need to be evaluated. Repeat CAT scan probably as noted at least 3 to 6 months. There is a high concern of him having been working on the ventilation system at the [employer] that he contracted some infectious process that was noted within the ventilation system that precipitated the series of events including his respiratory failure as well as his generalized weakness in his legs. FINAL DIAGNOSES: Acute respiratory failure, hypoxia, generalized weakness, myalgia, pulmonary nodules, acute respiratory distress, acute bronchitis, probable work related pulmonary acute injury. He will be discharged home on antibiotic. Several labs are still pending. He will follow up with Neurology, still has continued leg weakness. He received physical therapy while in the hospital. Continued on a regular diet, decreased activity. He is using a walker. He will follow up with Pulmonology and further testing as indicated there and also will be followed up on a regular basis as an outpatient to make sure that he recovers as much as possible from this serious illness, which is probably related to his contamination from the ventilation system at the school. MENDY WILKINS: Kerrie TID: [id number]
[2021-08-25 15:36] VITALS: BP 129/77
[2021-08-25] MEDS ORDERED: AZIT250T6 PO (15:57)
[2021-08-25] MEDS ORDERED: TAMS0.4C97 PO (15:57)
[2021-08-25] MEDS ORDERED: PRED-220 PO (15:57)
== END 2021-08-25 17:50 | disposition home or self-care (01) | DRG 189 ==
LOC: ER 17:48 → ER HOLD 21:39 → 1 SOUTH 22:11
PROVIDERS: ADMIT Hospitalist; ATTEND Family Medicine
DX: J96.21 Acute and chronic respiratory failure with hypoxia (principal); E43 Unspecified severe protein-calorie malnutrition; J45.901 Unspecified asthma with (acute) exacerbation; E83.51 Hypocalcemia; E87.6 Hypokalemia; F17.210 Nicotine dependence, cigarettes, uncomplicated; J20.9 Acute bronchitis, unspecified; J43.9 Emphysema, unspecified; Z79.899 Other long term (current) drug therapy; Z20.822 Contact with and (suspected) exposure to COVID-19; Z71.6 Tobacco abuse counseling
CPT/HCPCS: 36415; 36600; 70450; 71275; 80048; 80053; 80061; 80076; 80307; 81001; 82550; 82803; 83605; 83690; 83735; 83880; 84145; 84443; 84484; 85007; 85025; 85379; 85610; 85651; 85730; 86140; 86738; 87040; 87070; 87428; 93005; 93306; 93880; 94640; 94760; 96365; 99406; J0696; J1650; J2920; J2930; J7120; Q9967; U0003; 94664; 97110; 97116; 97530; 99285-25

== ENCOUNTER → 2021-08-21 | Outpatient (CLI) | payer BC ==
[~2021-08-21] MED LIST: AZIT250T6 PO; PRED-220 PO; TAMS0.4C97 PO
--- NOTE | 2021-08-21 08:07 | RAD ---
INDICATION: Reason: weakness and cough / Spl. Instructions: / History: COMPARISON: None. FINDINGS: 2 view of chest obtained. Hyperexpanded lungs with disorganized pulmonary markings bilaterally. Cardiac silhouette is unremarkable. Focal opacity in the retrocardiac region possibly seen at the right base on the frontal view IMPRESSION: * Focal opacity in the retrocardiac region. Could be secondary to a region of infiltrate but would o btain a follow-up to ensure that this resolves to exclude a persistent mass. * Disorganized pulmonary markings bilaterally which can be seen with emphysema. Electronically signed by: Miguel Awad MD (08/21/2021 8:04 AM) [id number]
== END ==
LOC: RAD 07:41
PROVIDERS: ATTEND Nurse Practitioner Family
DX: R06.00 Dyspnea, unspecified (principal)
CPT/HCPCS: 71046